=== PATIENT | male | born 1955 | race African-American/Black ===

== ENCOUNTER 2022-01-02 11:09 | Emergency (ER) | payer OTHER, MEDICAID ==
[~2022-01-02 11:09] MED LIST: AMLO5TAB16 PO
== END 2022-01-02 11:30 | disposition left against medical advice (07) ==
LOC: ER 11:10
DX: K62.5 Hemorrhage of anus and rectum (principal); Z53.21 Procedure and treatment not carried out due to patient leaving prior to being seen by health care provider